=== PATIENT | female | born 1990 | race Caucasian/White ===

== ENCOUNTER 2025-05-04 11:46 | Emergency (ER) | payer OTHER, SELFPAY ==
[2025-05-04 11:52] VITALS: BP 126/81
--- NOTE | 2025-05-04 12:42 | ED.GENMED ---
History of Present Illness
General
Chief Complaint: Vaginal Bleeding
Source: patient
Exam Limitations: none
Time Seen by Provider: 05/04/25 12:30
History of Present Illness
History of Present Illness:
34yoF with no significant past medical history presenting for evaluation of pelvic cramping. Patient has been having symptoms for the past 2 weeks including fatigue, nausea, and breast tenderness. She took a home test yesterday
which was negative. She started to experience spotting last night. Her pad was saturated with blood this morning when she woke up. She has had to use 2 additional pads so far today. She is experiencing pelvic cramping throughout her lower
abdomen and back which is worse on the left side. This is much worse than her typical cramps. She called her OBGYN but was unable to get an appointment. Of note, patient has also been experiencing urinary frequency for the past 3 days. She was
due to get her period tomorrow.
Phy Exam
General Physical Exam
General Presentation: well appearing and no apparent distress
General Skin: warm and dry
General Habitus: normal
General Mental: alert
ENT Exam
ENT Exam: normocephalic
Pulmonary Exam
Pulmonary Exam: no respiratory distress
Gastrointestinal Exam
Gastrointestinal Exam: soft, non distended and other (Mild tenderness throughout lower abdomen which is worse in the LLQ)
Neurological Exam
Neurological Exam: alert
[place] Coma Scale
Eye Opening: Spontaneous
Verbal Response: Oriented
Motor Response: Obeys Commands
GCS Total Score: 15
Skin Exam
Skin Exam: normal color and warm/dry
Psychiatric Exam
Psychiatric Exam: anxious
Course
Orders/Labs/Results
Orders:
Orders
05/04/25 12:41
Pelvis & Transvaginal US [US Pelvis W Transvag Combined] Urgent
Comment:
Reason For Exam: cramping, vaginal bleeding
05/04/25 13:12
Complete Blood Count/With Diff Urgent
Comprehensive Metabolic Panel Urgent
HCG, Beta Quantitative [Beta HCG Quantitative] Urgent
Is this a screen?: No
Urinalysis Reflex To Culture Urgent
Date Specimen was Collected: 05/04/25
Time Specimen was Collected: 12:43
Urine Microscopic Reflex Cult Urgent
Urine Culture Urgent
RICA Source: U
Specimen Description:
Date Specimen was Collected: 05/04/25
Time Specimen was Collected: 12:43
Abnormal Lab Results
05/04/25
13:12
RBC 4.10 L 10^6/uL
(4.20-5.40)
MCH 33.4 H pg
(27.0-31.0)
Absolute Lymphs (auto) 0.7 L 10^3/uL
(1.2-3.4)
Neutrophils % 78.5 H %
(42.2-75.2)
Lymphocytes % 14.2 L %
(20.5-51.1)
Chloride 108 H mmol/L
(98-107)
Glucose 111 H mg/dl
(70-99)
Ur Occult Blood Reflex 4+ A
(Negative)
Leukocyte Esterase Rfl 1+ A
(Negative)
Urine RBC 3-6 A /HPF
(0-2)
Urine Bacteria (Reflex) Moderate A
(Negative)
Urine Albumin (Reflex) 1+ A
(Neg - Trace)
05/04/25 13:12
05/04/25 13:12
Vital Signs
Initial and Last Documented VS:
Initial Vital Signs
Temp Pulse Resp BP Pulse Ox
98.4 F 86 18 126/81 99
05/04/25 11:52 05/04/25 11:52 05/04/25 11:52 05/04/25 11:52 05/04/25 11:52
Last Documented Vital Signs
Temp Pulse Resp BP Pulse Ox
98.4 F 68 18 113/58 99
05/04/25 11:52 05/04/25 17:03 05/04/25 17:03 05/04/25 17:03 05/04/25 17:03
MDM/Problems Addressed
Differential Diagnosis Includes:
34yoF here with lower abdominal cramping x 1 day. Started with vaginal bleeding today. Thinks she may be although had a neg urine test yesterday. VSS. She is non-toxic appearing. No signs of peritonitis on abdominal exam.
Differential diagnosis includes but is not limited to: dysmenorrhea, ovarian cyst, ovarian torsion, ectopic , doubt diverticulitis, less likely kidney stone
Initial ED plan: Check CBC, CMP, quantitative HCG, and pelvic ultrasound.
*Pulse Oximetry
SaO2: 99
Oxygen Mode of Delivery: Room air
Patient hypoxic: no
*Critical Care Note
Total Time (30-74mins, 75-104mins- exclusive of procedures): Not Applicable
Update Note
Update Note:
Quantitative HCG is undetectable. Labs unremarkable including normal white count. UA with 4+ blood consistent with her menstrual period. Moderate bacteria on microscopic analysis although 16-20/LPF squamous epithelial cells noted suggesting
contaminated sample. Pelvic ultrasound normal. Patient feeling improved on reassessment. Suspect symptoms are related to dysmenorrhea. Supportive care discussed and advised f/u with gynecology. ED return precautions reviewed and patient discharged
in stable condition.
ED Attending Note
-
Portions of this chart may have been created with voice recognition software.� Occasional wrong word or��sound alike� substitutions may have occurred due to the inherent limitations of voice recognition software.
Discharge Plan
Departure
Patient Disposition: Home (Routine Discharge)
Date of Disposition: 05/04/25
Time of Disposition: 16:21
Patient with high blood pressure during this ER visit?: No
Discharge Problem:
Dysmenorrhea
Instructions: Painful periods
Referrals:
Gen Johnson MD [Family Provider, Family Practice]
Activity Restrictions/Additional Instructions:
Apply heating pad to affected area. Take Tylenol and ibuprofen as needed for pain.
Please follow-up with your family doctor and user experience designer. Return to the ER with any new or worsening symptoms including severe pain or fevers.
Interventions
Interventions:
*Risk Screen - Suicide Last Done: 05/04/25 11:52
*General Assessment Last Done: 05/04/25 11:52
*Neglect/Abuse Screening Last Done: 05/04/25 11:52
*ED- Fall Risk Assessment Last Done: 05/04/25 14:13
ED-Female Genitourinary Assessment Last Done: 05/04/25 13:38
Discharge Date and Time
Print Language: [place]
[2025-05-04 13:36] LABS: Hematocrit 39.2 % (37.0-47.0); Hemoglobin 13.7 g/dL (12.0-16.0); Mean Corp Hgb Conc. 34.9 g/dL (33.0-37.0); Mean Corpuscular Volume 95.6 fL (81.0-99.0); Nucleated Red Blood Cells % 0 %; Platelet Count 249 10^3/uL (130-400); Red Cell Dist. Width 12.2 % (11.5-14.5)
[2025-05-04 13:37] LABS: ALT (SGPT) 11 U/L (0-35); AST (SGOT) 14 U/L (14-36); Albumin 4.7 g/dl (3.5-5.0); Alkaline Phosphatase 57 U/L (38-126); Blood Urea Nitrogen 10 mg/dl (7-17); Calcium 9.8 mg/dl (8.4-10.2); Carbon Dioxide 25 mmol/L (22-30); Chloride 108 mmol/L (98-107); Glucose 111 mg/dl (70-99); Potassium 4.3 mmol/L (3.5-5.1); Sodium 139 mmol/L (135-145); Total Protein 6.9 g/dl (6.3-8.2); eGFR > 60.00
[2025-05-04 14:19] LABS: Urine Character Clear (Clear)
[2025-05-04 14:40] LABS: Urine Squamous Cell 16-20 /LPF (Few)
[2025-05-04 16:05] LABS: Beta HCG Quantitative < 2.39 mIU/ml
[2025-05-04 17:03] VITALS: BP 113/58
== END 2025-05-04 17:15 | disposition home or self-care (01) ==
LOC: EMR 11:46
PROVIDERS: Physician Assistant; EMERGENCY PHYSICIAN Emergency Medicine; FAMILY PHYSICIAN Family Medicine
DX: N94.6 Dysmenorrhea, unspecified (principal)
CPT/HCPCS: 99284; 76830; 76856; 80053; 81003; 81015; 84702; 85025; 87086